=== PATIENT | female | born 1950 | race Caucasian/White ===

== ENCOUNTER 2019-03-11 07:54 | Emergency (ER) | payer OTHER ==
[~2019-03-11] VITALS: Ht 157.5 cm; Wt 104.3 kg
--- NOTE | 2019-03-11 08:16 | PHYS DOC ---
Adult General Chief Complaint Chief Complaint: WRIST PAIN HPI HPI Patient is a 68 year old female who presents to the ER with complaints of left wrist pain after tripping and falling in her driveway this morning. Pt states she fell forward onto her hands. She denies any right wrist or hand pain. She denies any head, neck, or back pain. Currently, she rates her pain a 7/10 on the pain scale. She denies any LOC, nausea, or vomiting. Review of Systems Review of Systems Constitutional: Denies fever or chills [] Eyes: Denies change in visual acuity, redness, or eye pain [] HENT: Denies nasal congestion or sore throat [] Respiratory: Denies cough or shortness of breath [] Cardiovascular: No additional information not addressed in HPI [] Musculoskeletal: Denies back pain, see HPI Integument: Denies rash or skin lesions [] Neurologic: Denies headache, focal weakness or sensory changes [] Complete systems were reviewed and found to be within normal limits, except as documented in this note. Current Medications Current Medications Current Medications Medications (Trade) Dose Ordered Sig/Aydee Start Time Stop Time Status Last Admin Dose Admin Acetaminophen/ Hydrocodone Bitart (Lortab 5/325) 1 tab 1X ONCE 03/11/19 08:45 03/11/19 08:46 Allergies Allergies Allergies Coded Allergies Type Severity Reaction Last Updated Verified STEPHANIE Inhibitors Allergy Unknown 03/11/19 Yes cyclobenzaprine Allergy Unknown 03/11/19 Yes Physical Exam Physical Exam Constitutional: Well developed, well nourished, no acute distress, non-toxic appearance, obese. [] HENT: Normocephalic, atraumatic, bilateral external ears normal, oropharynx moist, no oral exudates, nose normal. [] Eyes: conjunctiva normal, no discharge. [] Neck: Normal range of motion, no tenderness, no stridor. [] Cardiovascular:Heart rate regular rhythm Lungs & Thorax: Respirations even and unlabored, no retractions, no respiratory distress Skin: Warm, dry, no erythema, no rash. [] Back: No tenderness Extremities: No cyanosis, no clubbing; medial L wrist TTP, 1+ edema L wrist, limited ROM L wrist due to pain intolerance, no obvious deformity Neurologic: Alert and oriented X 3, no focal deficits noted. [] Psychologic: Affect normal, judgement normal, mood normal. [] EKG EKG [] Radiology/Procedures Radiology/Procedures PROCEDURE: WRIST 3V LEFT EXAM: Left wrist, 3 views. HISTORY: Fall. Pain. COMPARISON: None. FINDINGS: 3 views of the left wrist are obtained. There is a comminuted intra-articular fracture of the distal radial metaphysis. There is widening of the scapholunate joint space. There is first carpometacarpal joint space narrowing with subchondral sclerosis and marginal spurring. There is also spurring involving the first interphalangeal joint. There is wrist soft tissue swelling. IMPRESSION: 1. Comminuted intraarticular fracture of the distal radial metaphysis. 2. Moderate first carpometacarpal and mild first interphalangeal joint osteoarthritis. 3. Mild widening of the scapholunate joint space. This can be seen with a scapholunate ligament injury.[] Course & Med Decision Making Course & Med Decision Making Pertinent Labs and Imaging studies reviewed. (See chart for details) dx: L distal radius fx, scapholunate ligament injury Pt presents for L wrist pain after fall. She was given a hydrocodone for pain relief. X-ray revealed a comminuted dx of the distal radius and scapholunate widening indicating an injury of the scapholunate ligament. [id number]- Spoke with Dr. Pinto will have patient follow up with Dr. Kateryna Aguayo with [facility]. Kateryna Lee, [id number] [facility] [address], [place] [address] Pt was placed in a sugartong splint and a sling. Prescription written for [place]den 5/325 mg tablets, 1 PO q6h prn pain, RICE, Call Dr. Lee today to schedule follow up appointment. Patient verbalized an understanding of home care, medications, follow-up, and return to ED instructions and was in agreement with the plan of care. Becky Disclaimer Becky Disclaimer This electronic medical record was generated, in whole or in part, using a voice recognition dictation system. Departure Departure Impression: Primary Impression: Closed fracture of left distal radius Additional Impression: Scapholunate ligament injury, no instability Disposition: 01 HOME, SELF-CARE Condition: STABLE Patient Instructions: Wrist Fracture, Acug-fu-Fhic Additional Instructions: Fill prescription(s) and use as directed, be sure to drink plenty of water and take a stool softener twice daily while taking hydrocodone. Recommend application of ice, elevation, and rest of affected extremity. Wear the splint and sling that was placed until follow up appointment with Dr. Lee, call her office today to schedule an appointment. Return to the ER if your symptoms worsen. Kateryna Lee, [address], [place] [address] Scripts Hydrocodone Bit/Acetaminophen (HYDROCODONE-APAP 5-325 ) 1 Tab Tablet 1 TAB PO PRN Q6HRS PRN for PAIN for 3 Days, #12 TAB 0 Refills Prov: BRYON SHANKS APRN 03/11/19 Splinting Splinting : Location: L wrist Hand-Made Type: orthoglass Splint: sugar-tong Pre-Proc Neuro Vasc Exam: normal Post-Proc Neuro Vasc Exam: normal, unchanged from pre-exam Progress Pt tolerated procedure well, no complications. Problem Qualifiers Primary Impression: Closed fracture of left distal radius Encounter type: initial encounter Fracture morphology: unspecified fracture morphology Qualified Codes: S52.502A - Unspecified fracture of the lower end of left radius, initial encounter for closed fracture Additional Impression: Scapholunate ligament injury, no instability Encounter type: initial encounter Laterality: left Qualified Codes: S69.92XA - Unspecified injury of left wrist, hand and finger(s), initial encounter BRYON SHANKS APRN Mar 11, 2019 08:16
--- NOTE | 2019-03-11 08:30 | RAD ---
EXAM: Left wrist, 3 views. HISTORY: Fall. Pain. COMPARISON: None. FINDINGS: 3 views of the left wrist are obtained. There is a comminuted intra-articular fracture of the distal radial metaphysis. There is widening of the scapholunate joint space. There is first carpometacarpal joint space narrowing with subchondral sclerosis and marginal spurring. There is also spurring involving the first interphalangeal joint. There is wrist soft tissue swelling. IMPRESSION: 1. Comminuted intraarticular fracture of the distal radial metaphysis. 2. Moderate first carpometacarpal and mild first interphalangeal joint osteoarthritis. 3. Mild widening of the scapholunate joint space. This can be seen with a scapholunate ligament injury. Electronically signed by: Demetra Porras MD (03/11/2019 8:27 AM) [id number]
[2019-03-11] MEDS ORDERED: HYDROcodone/APAP 5/325MG 1 TAB TABLET PO ONE (08:45)
[2019-03-11] MEDS ORDERED: HYDR-2761 PO (08:54)
[2019-03-11 09:34] VITALS: BP 145/65
== END 2019-03-11 09:44 | disposition home or self-care (01) ==
LOC: ER 07:54
DX: S52.502A Unspecified fracture of the lower end of left radius, initial encounter for closed fracture (principal); Z88.8 Allergy status to other drugs, medicaments and biological substances; W01.0XXA Fall on same level from slipping, tripping and stumbling without subsequent striking against object, initial encounter; Y93.89 Activity, other specified; Y92.89 Other specified places as the place of occurrence of the external cause; Y99.8 Other external cause status
CPT/HCPCS: 29125; 73110; 99284